=== PATIENT | male | born 1970 | race Caucasian/White ===

== ENCOUNTER 2020-09-26 23:07 | Emergency (ER) | payer BC ==
[~2020-09-26] VITALS: Ht 182.9 cm; Wt 84.1 kg
[2020-09-26 23:15] VITALS: Ht 182.9 cm; Wt 84.1 kg
[2020-09-27] MEDS ORDERED: DICLOFENAC SODI50 MG PO (00:28)
[2020-09-27] MEDS ORDERED: MEDROL DOSE PACK4 MG PO (00:28)
[2020-09-27] MEDS ORDERED: ZANAFLEX4 MG PO (00:28)
[2020-09-27 01:53] VITALS: BP 122/70
== END 2020-09-27 01:54 | disposition home or self-care (01) ==
LOC: D.ER 23:07
DX: M54.16 Radiculopathy, lumbar region (principal); S39.012A Strain of muscle, fascia and tendon of lower back, initial encounter; X50.0XXA Overexertion from strenuous movement or load, initial encounter; Y93.9 Activity, unspecified; Y92.9 Unspecified place or not applicable